=== PATIENT | male | born 1975 | race Caucasian/White ===

== ENCOUNTER 2022-04-17 11:17 | Emergency (ER) | payer BC, SELFPAY ==
[2022-04-17 11:49] VITALS: BMI 33.1
== END 2022-04-17 18:12 | disposition left against medical advice (07) ==
PROVIDERS: Emergency Provider Family Medicine
DX: Z53.21 Procedure and treatment not carried out due to patient leaving prior to being seen by health care provider (principal); R56.9 Unspecified convulsions

== ENCOUNTER 2023-08-21 14:35 | Emergency (ER) | payer BC, SELFPAY ==
[2023-08-21 14:40] VITALS: BP 120/80; PULSE 90; RESP 22; TEMP 36.4; O2SAT 100
[2023-08-21 15:03] LABS: Basophils % 0.2 %; Eosinophils % 0.1 %; Hematocrit 41.7 % (37-53); Lymphocytes # 1.1 10^3/uL (0.8-4.8); Lymphocytes % 8.6 %; Mean Corpuscular HGB Conc 35.3 g/dL (30-55); Mean Corpuscular Hemoglobin 31.6 pg (27-33); Mean Corpuscular Volume 89.7 fl (82-101); Mean Platelet Volume 7.9 fL (7.4-10.4); Monocytes # 1.2 10^3/uL (0.2-0.9); Monocytes % 9.5 %; Neutrophils # 10.62 10^3/uL (1.8-7.7); Neutrophils % 81.2 %; Nucleated Red Blood Cells % 0 %; Platelet Count 173 10^3/cmm (157-399); Red Blood Count 4.65 10^6/uL (3.85-5.65); Red Cell Distribution Width 12.5 % (12.1-15.1); White Blood Count 13.06 10^3/uL (3.29-11.43)
[2023-08-21 15:16] LABS: Alanine Aminotransferase 18 U/L (0-41); Albumin Level 3.9 g/dL (3.5-5.2); Alkaline Phosphatase 57 U/L (40-130); Anion Gap 14.1 (5-19); Aspartate Amino Transferase 21 U/L (0-40); Blood Urea Nitrogen 14 mg/dL (6-20); Calcium 9.1 mg/dL (8.5-10.5); Carbon Dioxide 27 mmol/L (22-29); Chloride 100 mmol/L (98-107); Creatinine Clr Calc Pharmacy 76.0989; Globulin 3.5 g/dL (1.3-4.6); Glomerular Filtration Rate 58.7 mL/min (90-130); Glucose 108 mg/dL (65-115); Lipase 128 U/L (13-60); Osmolality Calculated 285 mOsm/kg (285-295); Potassium 4.1 mmol/L (3.5-5.1); Sodium 137 mmol/L (136-145); Total Protein 7.4 g/dL (6.6-8.7)
--- NOTE | 2023-08-21 15:51 | CTR_ITS ---
PROCEDURE INFORMATION: Exam: CT Abdomen And Pelvis Without Contrast Exam date and time: 08/21/2023 4:18 PM Age: 48 years old Clinical indication: Abdominal pain; Flank; Left; Additional info: Flank pain TECHNIQUE: Imaging protocol: Computed tomography of the abdomen and pelvis without contrast. Radiation optimization: All CT scans at this facility use at least one of these dose optimization techniques: automated exposure control; mA and/or kV adjustment per patient size (includes targeted exams where dose is matched to clinical indication); or iterative reconstruction. COMPARISON: No relevant prior studies available. RADIATION DOSE METRICS: Total DLP (mGy-cm): 524 FINDINGS: Liver: No acute findings Gallbladder and bile ducts: Cholelithiasis. Pancreas: No ductal dilation. Spleen: No splenomegaly. Adrenal glands: No mass. Kidneys and ureters: 7 mm proximal left ureteral calculus axial image 93 with moderate hydronephrosis. Additional punctate left renal calculi. No right-sided calculi. Stomach and bowel: No obstruction. Appendix: No evidence of appendicitis. Intraperitoneal space: No free air. No significant fluid collection. Vasculature: No abdominal aortic aneurysm. Lymph nodes: No enlarged lymph nodes. Urinary bladder: No acute findings. Reproductive: No acute findings. Bones/joints: No acute findings. Soft tissues: No acute findings. CT/CT kidney stone 12720 IMPRESSION: 7 mm proximal left ureteral calculus with moderate hydroureteronephrosis. Cholelithiasis.
--- NOTE | 2023-08-21 16:10 | ED_ITS ---
HPI - Abdominal Pain 2 General: Chief Complaint: Abdominal Pain Stated Complaint: abd and side pain Time Seen by Provider: 08/21/23 15:08 History of Present Illness: 48-year-old male presents emergency room with complaint of left flank pain radiating to his lower abdomen. He has a history of kidney stones in the past also admits to IV drug use daily both narcotics and methamphetamine. He has not noticed any blood in the urine he has not had any dysuria urgency or frequency. He has vomited a couple of times. No shortness of breath or cough. MD elicited complaint: abdominal pain Onset (ago): day(s) (2) Pain Consistency: constant Location: L flank Severity: severe Quality: sharp Exacerbating factors: nothing Relieving factors: nothing Associated Symptoms: Reports nausea and vomiting; Denies anorexia, belching, bloating, change in bowel habits, change in stool character, chills, coffee ground emesis, constipation, GI cramping, diarrhea, dyspepsia, dysuria, excessive flatus, fever(s), heartburn, hematochezia, hematuria, hematemesis, fecal incontinence, loose stools, melena, poor appetite and syncope Review of Systems 2 Const: Denies: fever(s) or chills Card: Denies: chest pain or syncope Resp: Denies: dyspnea GI: Reports: abdominal pain, nausea and vomiting; Denies: hematemesis, coffee ground emesis, heartburn, diarrhea, constipation, bloating, GI cramping, belching, excessive flatus, fecal incontinence, change in bowel habits, change in stool character, hematochezia or melena : Denies: dysuria or hematuria Musc: Denies: neck pain or back pain Skin/Breast: Denies: rash PFS ED 2 PFSH: Social History Smoking and tobacco/nicotine status: current every day tobacco/nicotine user Physical Exam 2 Const: GENERAL APPEARANCE: cooperative and comfortable O RIENTATION/CONSCIOUSNESS: Yes awake, Yes oriented to person, Yes oriented to place and Yes oriented to time HENMT: COMMON NORMALS: normocephalic, atraumatic and hearing grossly normal bilaterally HEAD & SCALP: normocephalic and atraumatic Resp: COMMON NORMALS: normal respiratory effort, No retractions, No use of accessory muscles and clear to auscultation bilaterally AUSCULTATION: clear to auscultation bilaterally Cardio: COMMON NORMALS: regular rate, regular rhythm and No murmurs present (Cardio) RATE: regular rate RHYTHM: regular rhythm GI: COMMON NORMALS: Soft to palpation and No hepatosplenomegaly present A USCULTATION: Yes normoactive bowel sounds PALPATION: Yes Soft to palpation, No Tenderness to palpation present (GI), No Guarding due to palpation present (GI) and Yes No hepatosplenomegaly present Extremity: COMMON NORMALS: normal to inspection, capillary refill normal, no clubbing, cyanosis or edema, no calf tenderness and no pedal edema Neuro: SENSORIUM/ORIENTATION: Yes oriented to person, Yes oriented to place and Yes oriented to time Skin: COMMON NORMALS: no rashes or lesions noted GENERAL SKIN EXAM: no rashes or lesions noted Course 2 Vital Signs: Vital signs: Vital Signs Temperature 97.6 F 08/21/23 14:40 Pulse Rate 90 08/21/23 14:40 Respiratory Rate 19 H 08/21/23 16:27 Blood Pressure 120/80 08/21/23 14:40 Pulse Oximetry 99 08/21/23 16:27 Oxygen Delivery Me thod Room Air 08/21/23 14:40 MDM - Abdominal Pain Medical Decision Making 7 mm proximal ureteral stone. Patient's pain is well-controlled will refer to urology discharge home for medications if pain becomes uncontrolled return to the emergency room. Patient admits to methamphetamine use and narcotics abuse in the past. Discussed with him the importance of not taking any extra narcotics beyond what was prescribed his was with him and gave him prescription for Narcan to use as well. Differential Diagnosis Likely calculus of kidney Medical Records I reviewed the patient's medical records. Lab Data I reviewed the patient's lab results. 08/21/23 14:52 08/21/23 14:52 Labs/Radiology: Radiology Impressions Abdomen/Pelvis CT 08/21/23 15:51 IMPRESSION: 7 mm proximal left ureteral calculus with moderate hydroureteronephrosis. Cholelithiasis. Laboratory Results WBC 13.06 10^3/uL (3.29-11.43) H 08/21/23 14:52 RBC 4.65 10^6/uL (3.85-5.65) 08/21/23 14:52 Hgb 14.70 g/dL (11.27-16.99) 08/21/23 14:52 Hct 41.7 % (37-53) 08/21/23 14:52 MCV 89.7 fl (82-101) 08/21/23 14:52 MCH 31.6 pg (27-33) 08/21/23 14:52 MCHC 35.3 g/dL (30-55) 08/21/23 14:52 RDW 12.5 % (12.1-15.1) 08/21/23 14:52 Plt Count 173 10^3/cmm (157-399) 08/21/23 14:52 MPV 7.9 fL (7.4-10.4) 08/21/23 14:52 Neut % (Auto) 81.2 % 08/21/23 14:52 Lymph % (Auto) 8.6 % 08/21/23 14:52 [place] % (Auto) 9.5 % 08/21/23 14:52 Eos % (Auto) 0.1 % 08/21/23 14:52 Baso % (Auto) 0.2 % 08/21/23 14:52 Neut # (Auto) 10.62 10^3/uL (1.8-7.7) H 08/21/23 14:52 Lymph # (Auto) 1.1 10^3/uL (0.8-4.8) 08/21/23 14:52 [place] # (Auto) 1.2 10^3/uL (0.2-0.9) H 08/21/23 14:52 Eos # (Auto) 0.0 10^3/uL (0.0-0.8) 08/21/23 14:52 Baso # (Auto) 0.0 10^3/uL (0.0-0.1) 08/21/23 14:52 Nucleated RBC % (auto) 0 % 08/21/23 14:52 Nucleated RBCs # 0.0 /100WBC 08/21/23 14:52 Sodium 137 mmol/L (136-145) 08/21/23 14:52 Potassium 4.1 mmol/L (3.5-5.1) 08/21/23 14:52 Chloride 100 mmol/L (98-107) 08/21/23 14:52 Carbon Dioxide 27 mmol/L (22-29) 08/21/23 14:52 Anion Gap 14.1 (5-19) 08/21/23 14:52 BUN 14 mg/dL (6-20) 08/21/23 14:52 Creatinine 1.3 mg/dL (0.7-1.2) H 08/21/23 14:52 GFR Calculation 58.7 mL/min (90-130) L 08/21/23 14:52 Glucose 108 mg/dL (65-115) 08/21/23 14:52 Calculated Osmolality 285 mOsm/kg (285-295) 08/21/23 14:52 Calcium 9.1 mg/dL (8.5-10.5) 08/21/23 14:52 Total Bilirubin 1.0 mg/dL (0.15-1.2) 08/21/23 14:52 AST 21 U/L (0-40) 08/21/23 14:52 ALT 18 U/L (0-41) 08/21/23 14:52 Alkaline Phosphatase 57 U/L (40-130) 08/21/23 14:52 Total Protein 7.4 g/dL (6.6-8.7) 08/21/23 14:52 Albumin 3.9 g/dL (3.5-5.2) 08/21/23 14:52 Globulin 3.5 g/dL (1.3-4.6) 08/21/23 14:52 Lipase 128 U/L (13-60) H 08/21/23 14:52 Urine Color Yellow (Yellow) 08/21/23 17:24 Urine Appearance Hazy (CLEAR) A 08/21/23 17:24 Urine pH 8 (5-7) H 08/21/23 17:24 Ur Specific [place] 1.015 (1.005-1.030) 08/21/23 17:24 Urine Protein Neg (Negative) 08/21/23 17:24 Urine Glucose (UA) Norm (Normal) 08/21/23 17:24 Urine Ketones 1+ (Negative) H 08/21/23 17:24 Urine Blood Neg (Negative) 08/21/23 17:24 Urine Nitrate Negative (Negative) 08/21/23 17:24 Urine Bilirubin Neg (Negative) 08/21/23 17:24 Prot Sulfosalicylic Acd Negative (Negative) 08/21/23 17:24 Urine Urobilinogen Norm mg/dL (Negative) 08/21/23 17:24 Ur Leukocyte Esterase Negative (Negative) 08/21/23 17:24 Urine RBC 0-4 /hpf (0-2) H 08/21/23 17:24 Urine WBC 0-4 /hpf (0-5) H 08/21/23 17:24 Ur Squamous Epith Cells None /hpf (0-5) 08/21/23 17:24 Amorphous Sediment 2+ /hpf 08/21/23 17:24 Urine Bacteria Trace /hpf (NONE) 08/21/23 17:24 Urine Mucus Trace /hpf 08/21/23 17:24 All radiology interpretation(s) finalized by discharge Discharge Plan Discharge Patient Disposition: Home Clinical Impression: Calculus of kidney Condition: Stable Prescriptions: New promethazine 25 mg tablet 25 mg PO Q6H PRN (Reason: nausea and vomiting) Qty: 20 0RF tamsulosin 0.4 mg capsule 0.4 mg PO DAILY Qty: 20 0RF No Action aspirin [Adult Aspirin Regimen] 81 mg tablet,delayed release (DR/EC) 81 mg PO DAILY acetaminophen 325 mg capsule 325 mg PO QID PRN (Reason: Pain) levetiracetam 500 mg tablet 500 mg PO BID 30 Days Qty: 60 1RF ketorolac 10 mg tablet 10 mg PO Q6H PRN (Reason: pain) Qty: 14 0RF orphenadrine citrate 100 mg tablet extended release 100 mg PO Q12H Qty: 10 0RF Discharge Orders: Discharge ED (Routine); Ordered 08/21/23 Ordered By: Jorje Sherwood Discharge Diet: Usual diet Discharge Activity: Increase activity as tolerated Patient Instructions: Kidney Stones (ED), How to Strain Your Urine (ED), Opioid Safety, Pain Management Activity Restrictions/Additional Instructions: Thank you for choosing [facility] for your healthcare needs today. Please realize this is an emergency room and that we are providing you with a medical screening exam and this may not be complete and all inclusive of all the testing and or work up that you may need to determine your ailment or severity of your illness. It is very important that you follow up as instructed or that you return to the Emergency Department should you have concerns or if your condition changes or worsens in any way. You were seen today for kidney stones recommend you strain your urine to collect the kidney stone to return for evaluation. licensed psychologist manager will make arrangements for you to see urology. If your pain is not controlled return to the emergency room. You were given tamsulosin to use once daily you are also given Percocet 1 every 6 hours as needed for pain is very important not to use other narcotics while taking the Percocet as this can be dangerous and cause you to stop breathing. You are also given a prescription for the antidote for narcotics (naloxone/Narcan). Please share this with your family members if you become overly sedate from narcotics use they should administer this to you and bring you to the emergency room or call 911 Coding Level of Care Code ED Police Inspector for Manuel Echeverria
--- NOTE | 2023-08-21 16:11 | PC.PHAR ---
PT STATES HAS BEEN TAKEN OFF LISINOPRIL 20 MG. LAST FILL 11/24/22
[2023-08-21] MEDS: ondansetron 2 mg/ML SDV 2 mL 4 MG IVP (16:26)
[2023-08-21 16:27] VITALS: RESP 19; O2SAT 99
[2023-08-21] MEDS: HYDROmorphone 1 mg/mL INJ 1 mL IVP (16:27)
[2023-08-21 17:43] LABS: Add Urine Microscopic? YES; Bilirubin Urine Neg (Negative); Blood Urine Neg (Negative); Glucose Urine UA Norm (Normal); Ketones Urine 1+ (Negative); Leukocyte Esterase Urine Negative (Negative); Nitrate Urine Negative (Negative); Protein Urine Neg (Negative); Specific Gravity, Urine 1.015 (1.005-1.030); Urine Appearance Hazy (CLEAR); Urine Color Yellow (Yellow); Urobilinogen Urine Norm (Negative); pH Urine 8 (5-7)
[2023-08-21 17:44] LABS: Sulfosalicylic Acid Urine Negative (Negative)
[2023-08-21 17:50] LABS: RBC Urine 0-4 /hpf (0-2); WBC Urine 0-4 /hpf (0-5)
[2023-08-21 17:51] LABS: Add Urine Culture? No; Amorphous Sediment Urine 2+ /hpf; Bacteria Urine TRACE /hpf; Mucus Urine TRACE /hpf
--- NOTE | 2023-08-22 08:03 | DCPLANNER ---
Addendum entered by Rochelle Vann 08/22/23 09:52: I faxed this patients chart to [facility] on 08/22/23 at 0949 am. The urology clinic should be contacting this patient for an appt. Urology phone number is [phone] Fax number: [phone] Addendum entered by Rochelle Vann 08/22/23 09:43: Patient called back at 0938 on 08/22 and requested [facility]. He does not care if it is [facility] or [facility]. Original Note: I attempted to call patient on 08/22 at 0804 am to see where he would like his urology referral sent. Patient did not answer and I left a voicemail.
== END 2023-08-21 18:28 | disposition home or self-care (01) ==
PROVIDERS: Emergency Medicine; Emergency Provider Family Medicine
DX: N13.2 Hydronephrosis with renal and ureteral calculous obstruction (principal); Z79.82 Long term (current) use of aspirin; F19.90 Other psychoactive substance use, unspecified, uncomplicated
CPT/HCPCS: 36415; 74176; 80053; 81001; 83690; 85025; 96374; 96375; 99285; J1170; J2405

== ENCOUNTER 2023-08-23 13:15 | Emergency (ER) | payer BC, SELFPAY ==
[2023-08-23 13:17] VITALS: BMI 25.1
[2023-08-23 13:34] VITALS: BP 120/85; PULSE 90; RESP 18; O2SAT 96
--- NOTE | 2023-08-23 13:41 | ED_ITS ---
HPI - Male Genitourinary 2 General: Chief complaint: Urogenital-Male Stated complaint: lower left side back pain Time Seen by Provider: 08/23/23 13:40 History of Present Illness: Patient presents to the ER with complaints of left flank pain. Patient has a known kidney stone in his left ureter. Patient was seen here in August [address] scan and was given 20 Percocet at that time. Patient presents today with worsening pain of his left flank pain. He says the Percocet only lasted about 2 hours so he is taking them all. Patient is also having nausea vomiting. Patient appears nontoxic in no acute distress. Patient's blood pressure is stable at 120/85 his pulse is 90 and he is lying in bed. Per review of the last ER visit patient does have a history of kidney stones and also admits to daily IV drug use of both narcotics and methamphetamines. Review of Systems 2 General: Reports: 10 or more systems reviewed and unremarkable except in HPI and below PFSH ED 2 PFSH: Social History Smoking and tobacco/nicotine status: current every day tobacco/nicotine user Physical Exam 2 Const: COMMON NORMALS: no acute distress, average body habitus, patient oriented x3, no limitations, healthy appearing, alert and well nourished HENMT: COMMON NORMALS: normocephalic, atraumatic, hearing grossly normal bilaterally, external ears normal, Normal external nose present, moist oral mucous membranes and oropharynx normal HEAD & SCALP: normocephalic and atraumatic NOSE: Normal external nose present EXTERNAL EAR: Yes external ears normal Neck/C-Spine: COMMON NORMALS: no JVD Chest: COMMONS NORMALS: normal inspection of the chest and normal palpation of entire chest wall Resp: COMMON NORMALS: normal respiratory effort, No retractions, No use of accessory muscles and clear to auscultation bilaterally AUSCULTATION: clear to auscultation bilaterally Cardio: COMMON NORMALS: no JVD, regular rate, regular rhythm, S1 normal heart sound present, S2 normal heart sound present, No gallops present (Cardio), No clicks present (Cardio), No murmurs present (Cardio) and No rub (Cardio) R ATE: regular rate RHYTHM: regular rhythm HEART SOUNDS: S1 normal heart sound present and S2 normal heart sound present GI: COMMON NORMALS: Normal to inspection, nondistended, normoactive bowel sounds present, Soft to palpation, non-tender, No hepatosplenomegaly present and no masses PALPATION: Yes Soft to palpation and Yes No hepatosplenomegaly present Neuro: COMMON NORMALS: patient oriented x3 SENSORIUM/ORIENTATION: Yes alert Course 2 Vital Signs: Vital signs: Vital Signs Pulse Rate 88 08/23/23 14:00 Respiratory Rate 17 08/23/23 14:00 Blood Pressure 120/85 08/23/23 14:00 Pulse Oximetry 97 08/23/23 14:00 Oxygen Delivery Me thod Room Air 08/23/23 14:00 MDM - Male Medical Decision Making Patient is a known submillimeter kidney stone. Patient was in the ER 2 days ago and received 20 oxycodone he is already taken all of and is now in pain. Patient had blood work done which was stable. Urine did show hematuria urine drug screen did show positive for amphetamines and THC but no opiates. Patient was given Toradol and Norflex IV in the ER. Patient be discharged on p.o. Toradol and Norflex. Patient is already had case management consulted and is in the process of getting a referral to urology. Differential Diagnosis Unlikely urinary tract infection, priapism, urethritis, epididymitis, genital herpes simplex, prostatitis, acute retention of urine or inguinal hernia Medical Records I reviewed the patient's medical records. Lab Data I reviewed the patient's lab results. 08/23/23 14:09 08/23/23 14:09 Laboratory Results WBC 11.68 10^3/uL (3.29-11.43) H 08/23/23 14:09 RBC 5.16 10^6/uL (3.85-5.65) 08/23/23 14:09 Hgb 15.70 g/dL (11.27-16.99) 08/23/23 14:09 Hct 46.5 % (37-53) 08/23/23 14:09 MCV 90.1 fl (82-101) 08/23/23 14:09 MCH 30.4 pg (27-33) 08/23/23 14:09 MCHC 33.8 g/dL (30-55) 08/23/23 14:09 RDW 12.2 % (12.1-15.1) 08/23/23 14:09 Plt Count 197 10^3/cmm (157-399) 08/23/23 14:09 MPV 7.9 fL (7.4-10.4) 08/23/23 14:09 Neut % (Auto) 80.5 % 08/23/23 14:09 Lymph % (Auto) 9.3 % 08/23/23 14:09 [place] % (Auto) 9.3 % 08/23/23 14:09 Eos % (Auto) 0.3 % 08/23/23 14:09 Baso % (Auto) 0.3 % 08/23/23 14:09 Neut # (Auto) 9.40 10^3/uL (1.8-7.7) H 08/23/23 14:09 Lymph # (Auto) 1.1 10^3/uL (0.8-4.8) 08/23/23 14:09 [place] # (Auto) 1.1 10^3/uL (0.2-0.9) H 08/23/23 14:09 Eos # (Auto) 0.0 10^3/uL (0.0-0.8) 08/23/23 14:09 Baso # (Auto) 0.0 10^3/uL (0.0-0.1) 08/23/23 14:09 Nucleated RBC % (auto) 0 % 08/23/23 14:09 Nucleated RBCs # 0.0 /100WBC 08/23/23 14:09 Sodium 136 mmol/L (136-145) 08/23/23 14:09 Potassium 4.3 mmol/L (3.5-5.1) 08/23/23 14:09 Chloride 96 mmol/L (98-107) L 08/23/23 14:09 Carbon Dioxide 29 mmol/L (22-29) 08/23/23 14:09 Anion Gap 15.3 (5-19) 08/23/23 14:09 BUN 16 mg/dL (6-20) 08/23/23 14:09 Creatinine 1.4 mg/dL (0.7-1.2) H 08/23/23 14:09 GFR Calculation 53.9 mL/min (90-130) L 08/23/23 14:09 Glucose 91 mg/dL (65-115) 08/23/23 14:09 Calculated Osmolality 283 mOsm/kg (285-295) L 08/23/23 14:09 Calcium 9.7 mg/dL (8.5-10.5) 08/23/23 14:09 Total Bilirubin 0.9 mg/dL (0.15-1.2) 08/23/23 14:09 AST 15 U/L (0-40) 08/23/23 14:09 ALT 16 U/L (0-41) 08/23/23 14:09 Alkaline Phosphatase 65 U/L (40-130) 08/23/23 14:09 Total Protein 8.2 g/dL (6.6-8.7) 08/23/23 14:09 Albumin 4.3 g/dL (3.5-5.2) 08/23/23 14:09 Globulin 3.9 g/dL (1.3-4.6) 08/23/23 14:09 Urine Color Yellow (Yellow) 08/23/23 14:10 Urine Appearance Clear (CLEAR) 08/23/23 14:10 Urine pH 6.5 (5-7) 08/23/23 14:10 Ur Specific [place] 1.010 (1.005-1.030) 08/23/23 14:10 Urine Protein Neg (Negative) 08/23/23 14:10 Urine Glucose (UA) Norm (Normal) 08/23/23 14:10 Urine Ketones 1+ (Negative) H 08/23/23 14:10 Urine Blood 2+ (Negative) H 08/23/23 14:10 Urine Nitrate Negative (Negative) 08/23/23 14:10 Urine Bilirubin Neg (Negative) 08/23/23 14:10 Urine Urobilinogen Norm mg/dL (Negative) 08/23/23 14:10 Ur Leukocyte Esterase Negative (Negative) 08/23/23 14:10 Urine RBC 5-10 /hpf (0-2) H 08/23/23 14:10 Urine WBC 0-4 /hpf (0-5) H 08/23/23 14:10 Ur Squamous Epith Cells None /hpf (0-5) 08/23/23 14:10 Amorphous Sediment Not Reportable 08/23/23 14:10 Urine Bacteria Trace /hpf (NONE) 08/23/23 14:10 Urine Opiates Screen Negative ng/mL (Negative) 08/23/23 14:10 Ur Barbiturates Screen Negative ng/mL (Negative) 08/23/23 14:10 Ur Phencyclidine Scrn Negative ng/mL (Negative) 08/23/23 14:10 Ur Amphetamines Screen Positive ng/mL (Negative) H 08/23/23 14:10 U Benzodiazepines Scrn Negative ng/mL (Negative) 08/23/23 14:10 Urine Cocaine Screen Negative ng/mL (Negative) 08/23/23 14:10 U Marijuana (THC) Screen Positive ng/mL (Negative) H 08/23/23 14:10 All radiology interpretation(s) finalized by discharge Discharge Plan Discharge Patient Disposition: Home Clinical Impression: Calculus of kidney, Amphetamine abuse, Marijuana abuse, Noncompliance Condition: Stable Prescriptions: No Action aspirin [Adult Aspirin Regimen] 81 mg tablet,delayed release (DR/EC) 81 mg PO DAILY acetaminophen 325 mg capsule 325 mg PO QID PRN (Reason: Pain) levetiracetam 500 mg tablet 500 mg PO BID 30 Days Qty: 60 1RF naproxen sodium [Aleve] 220 mg Tablet 220 mg PO BID PRN (Reason: Pain) oxycodone-acetaminophen [Percocet] 5-325 mg tablet 1 tab PO Q6H PRN (Reason: pain) Qty: 20 0RF promethazine 25 mg tablet 25 mg PO Q6H PRN (Reason: nausea and vomiting) Qty: 20 0RF tamsulosin 0.4 mg capsule 0.4 mg PO DAILY Qty: 20 0RF Discharge Orders: Discharge ED (Routine); Ordered 08/23/23 Ordered By: Sai Dickson Patient Instructions: Kidney Stones, Methamphetamine Use Disorder (ED), Marijuana Abuse Activity Restrictions/Additional Instructions: Please take your medicines as directed only. Please do not use methamphetamines or marijuana. Please follow-up with your urologist appointment as made by case management. Please call them if you are unaware of the appointment time. Coding Level of Care Code ED Mortgage Closing Clerk for Manuel Echeverria
[2023-08-23 14:00] VITALS: BP 120/85; PULSE 88; RESP 17; O2SAT 97
[2023-08-23 14:14] LABS: Basophils % 0.3 %; Eosinophils % 0.3 %; Hematocrit 46.5 % (37-53); Lymphocytes # 1.1 10^3/uL (0.8-4.8); Lymphocytes % 9.3 %; Mean Corpuscular HGB Conc 33.8 g/dL (30-55); Mean Corpuscular Hemoglobin 30.4 pg (27-33); Mean Corpuscular Volume 90.1 fl (82-101); Mean Platelet Volume 7.9 fL (7.4-10.4); Monocytes # 1.1 10^3/uL (0.2-0.9); Monocytes % 9.3 %; Neutrophils % 80.5 %; Nucleated Red Blood Cells % 0 %; Platelet Count 197 10^3/cmm (157-399); Red Blood Count 5.16 10^6/uL (3.85-5.65); Red Cell Distribution Width 12.2 % (12.1-15.1); White Blood Count 11.68 10^3/uL (3.29-11.43)
[2023-08-23] MEDS: orphenadrine 30 mg/mL Inj 2 mL 60 MG IVP (14:17)
[2023-08-23] MEDS: sodium chloride 0.9% 1,000 ML 999 ML IV (14:17)
[2023-08-23] MEDS: ketorolac 30 mg/mL INJ IVP (14:17)
[2023-08-23 14:33] LABS: Alanine Aminotransferase 16 U/L (0-41); Albumin Level 4.3 g/dL (3.5-5.2); Alkaline Phosphatase 65 U/L (40-130); Anion Gap 15.3 (5-19); Aspartate Amino Transferase 15 U/L (0-40); Blood Urea Nitrogen 16 mg/dL (6-20); Calcium 9.7 mg/dL (8.5-10.5); Carbon Dioxide 29 mmol/L (22-29); Chloride 96 mmol/L (98-107); Globulin 3.9 g/dL (1.3-4.6); Glomerular Filtration Rate 53.9 mL/min (90-130); Glucose 91 mg/dL (65-115); Osmolality Calculated 283 mOsm/kg (285-295); Potassium 4.3 mmol/L (3.5-5.1); Sodium 136 mmol/L (136-145); Total Bilirubin 0.9 mg/dL (0.15-1.2); Total Protein 8.2 g/dL (6.6-8.7)
[2023-08-23 14:37] LABS: Add Urine Culture? No; Add Urine Microscopic? YES; Bacteria Urine TRACE /hpf; Bilirubin Urine Neg (Negative); Blood Urine 2+ (Negative); Glucose Urine UA Norm (Normal); Ketones Urine 1+ (Negative); Leukocyte Esterase Urine Negative (Negative); Nitrate Urine Negative (Negative); Protein Urine Neg (Negative); Urine Appearance Clear (CLEAR); Urine Color Yellow (Yellow); Urobilinogen Urine Norm (Negative); WBC Urine 0-4 /hpf (0-5); pH Urine 6.5 (5-7)
[2023-08-23 14:40] LABS: Amphetamines Screen Urine Positive (Negative); Barbiturates Screen Urine Negative (Negative); Benzodiazepines Screen Urine Negative (Negative); Cocaine Screen Urine Negative (Negative); Opiate Screen Urine Negative (Negative); PCP Screen Urine Negative (Negative); THC Screen Urine Positive (Negative)
[2023-08-23 15:41] VITALS: BP 120/85; PULSE 88; RESP 17; O2SAT 97
== END 2023-08-23 15:43 | disposition home or self-care (01) ==
PROVIDERS: Emergency Provider Emergency Medicine
DX: N20.0 Calculus of kidney (principal); F15.10 Other stimulant abuse, uncomplicated; F12.10 Cannabis abuse, uncomplicated; Z79.82 Long term (current) use of aspirin; Z87.442 Personal history of urinary calculi; Z91.199 Patient's noncompliance with other medical treatment and regimen due to unspecified reason; Z72.0 Tobacco use
CPT/HCPCS: 80053; 80306; 81001; 85025; 96361; 96374; 96375; 99284; J1885; J2360; J7030